=== PATIENT | female | born 1975 | race Hispanic/Latino ===

== ENCOUNTER 2024-03-24 11:32 | Emergency (ER) | payer SELFPAY ==
[2024-03-24 12:08] LABS: #Basophils 0.11 10x3/uL (0.0-0.2); %Basophils 0.9 % (0.0-1.0); %Eosinophils 3.2 % (0.0-10.0); %Lymphocytes 28.8 % (21.0-51.0); %Monocytes 7.3 % (0.0-10.0); %Neutrophils 59.3 % (42.0-75.0); Hematocrit 38.3 % (36.0-47.0); Hemoglobin 13.1 g/dL (12.0-16.0); Mean Corpuscular HGB CONC 34.2 g/dL (32.0-36.0); Mean Corpuscular Hemoglobin 31.5 pg (27.0-31.0); Mean Corpuscular Volume 92.1 fL (78.0-98.0); Mean Platelet Volume 9.8 fL (7.4-10.4); Platelet Count 395 10x3/uL (130-400); RBC Distribution Width 12.8 % (11.5-14.5); Red Blood Cell (RBC) Count 4.16 mill/uL (4.20-5.40)
[2024-03-24 12:46] LABS: ALT (SGPT) 29 U/L (8-55); AST (SGOT) 24 U/L (5-34); Albumin 3.9 g/dL (3.5-5.0); Alkaline Phosphatase 151 U/L (40-110); Anion Gap 15 mmol/L (10-20); BUN (Urea Nitrogen) 5 mg/dL (7.0-18.7); Bilirubin, Total 0.3 mg/dL (0.2-1.2); Calc. Creatinine Clearance 0 mL/min (70-130); Calcium 9.2 mg/dL (7.8-10.44); Carbon Dioxide 16 mmol/L (22-29); Chloride 108 mmol/L (98-107); Estimated GFR 108; Globulin 3.8 g/dL (2.4-3.5); Glucose 101 mg/dL (70-105); Potassium 3.3 mmol/L (3.5-5.1); Protein, Total 7.7 g/dL (6.0-8.3); Sodium 136 mmol/L (136-145)
[2024-03-24 12:48] LABS: Troponin I Less than 0.010 ng/mL (< 0.028)
[2024-03-24] MEDS ORDERED: Potassium Chloride 20 MEQ TAB ONE (13:11)
[2024-03-24] MEDS ORDERED: Lorazepam 1 MG TAB ONE (13:21)
== END 2024-03-24 13:54 | disposition home or self-care (01) ==
LOC: ERS 11:32
DX: F41.9 Anxiety disorder, unspecified (principal); E87.6 Hypokalemia; E87.21 Acute metabolic acidosis; I10 Essential (primary) hypertension; F17.210 Nicotine dependence, cigarettes, uncomplicated
CPT/HCPCS: 36415; 80053; 84484; 85025; 93005; 94760

== ENCOUNTER 2024-07-06 16:39 | Emergency (ER) | payer SELFPAY ==
[2024-07-06] MEDS ORDERED: Boostrix 0.5 ML (Tdap) VIAL (>/=7 yrs of age) ONE (18:21)
[2024-07-06] MEDS ORDERED: Lidocaine 1% w/Epinephrine 1:100K 20 ML VIAL ONE (18:21)
[2024-07-06] MEDS ORDERED: HYDROcodone/Acetaminophen 10/325 mg Tablet ONE (18:39)
== END 2024-07-06 22:55 | disposition home or self-care (01) ==
LOC: ERS 16:39
DX: H60.02 Abscess of left external ear (principal); I10 Essential (primary) hypertension; F17.210 Nicotine dependence, cigarettes, uncomplicated
CPT/HCPCS: 69000; 90471; 90715

== ENCOUNTER 2024-10-03 17:04 | Emergency (ER) | payer SELFPAY | END 2024-10-03 19:00 | disposition home or self-care (01) | LOC: ERS 17:04 | DX: J02.9 Acute pharyngitis, unspecified (principal); H65.93 Unspecified nonsuppurative otitis media, bilateral; I10 Essential (primary) hypertension | CPT/HCPCS: 71045; 87081; 87428; 87430 ==